=== PATIENT | male | born 1925 | race Caucasian/White ===

== ENCOUNTER 2016-10-12 04:21 | Inpatient (IN) | payer OTHER ==
[2016-10-07 16:35] LABS: HEMATOCRIT 43.2 % (40.0-51.0); HEMOGLOBIN 14.9 g/dL (13.6-17.8)
[2016-10-07 16:40] LABS: CHLORIDE, SERUM 103 MMOL/L (96-112); CO2 (CARBON DIOXIDE) 28 MMOL/L (24-34); GFR AFRICAN AMERICAN 41 ML/MIN (>=60); GFR NON AFRICAN AMERICAN 36 ML/MIN (>=60); GLUCOSE, SERUM 208 MG/DL (60-99); POTASSIUM, SERUM 4.3 MMOL/L (3.5-5.3); SODIUM, SERUM 139 MMOL/L (135-148)
[2016-10-07 16:42] LABS: BUN (BLOOD UREA NITROGEN) 23 MG/DL (6-23); CREATININE 1.67 MG/DL (0.70-1.30)
[2016-10-07 17:05] LABS: ASCORBIC ACID (UR NOT ORDER) NEG (NEG); BILIRUBIN, URINE NEGATIVE (NEG); KETONE, URINE NEGATIVE (NEG); LEUKOCYTE ESTERASE(NOT OR LARGE (NEG); WBC (NOT ORDERED) (RFLEX) 21 (0-5)
--- NOTE | ~2016-10-12 | OP ---
Record Of Operation [facility] [address] [place]. [address] NAME: ROCHELLE COLILNS : [birth year] STATUS : ADM [facility]#: [id number] AGE: 89 ADM/REG DATE : 10/12/16 MR#: [id number] REPORT SERV DATE: 10/12/16 DICTATED BY: KESHIA ZAMORANO DATE: 10/12/16 REPORT STATUS : Draft TRANSCRIBED BY: MODL DATE: 10/12/16 DATE OF PROCEDURE: 10/12/2016 SURGEON: Keshia Zamorano M.D. TITLE OF OPERATION: Robot-assisted laparoscopic simple prostatectomy. PREOPERATIVE DIAGNOSES: 1. Benign prostatic hypertrophy with obstruction. 2. Urinary retention. POSTOPERATIVE DIAGNOSES: 1. Benign prostatic hypertrophy with obstruction. 2. Urinary retention. INDICATIONS: Mr. Collins is an 89-year-old male with urinary retention. His prostate volume was approximately 150 g. He is here for robotic simple prostatectomy. ANESTHESIA: General. COMPLICATIONS: None. IMPLANTS: 1. 24-Frisian three-way Watt catheter. 2. #10 round ROLF drain. SPECIMEN: Prostatic adenoma. NARRATIVE: The patient was brought to the operating room, identified by his wristband. General anesthesia was induced, and Ancef and Levaquin were given for preoperative antibiotics based on preoperative cultures. He was placed in dorsal lithotomy position, prepped and draped in sterile fashion. His abdomen was insufflated to pressure of 15 mmHg using a Veress needle. A 12 mm port was placed in a supraumbilical position under direct vision. The abdomen was inspected, it was normal. Standard SI port placement was performed with two 8 mm ports on left side of the body and one 8 mm port on the right side of the body. A 12 mm port was placed in the right lower quadrant, and a 5 mm port was placed in the right upper quadrant for assistant shift supervisor ports. The patient was placed in Trendelenburg. The robot was docked. The bladder was dropped off the anterior abdominal wall with electrocautery. The prostate was defatted with bipolar cautery and scissors. A horizontal cystotomy was made. The intravesical adenoma was marked with a 2-0 Vicryl suture. The mucosa above the trigone on the adenoma was scored. This dissection was deepened through the detrusor fibers onto the adenoma. The adenoma was traced posteriorly to the junction of the transitional and peripheral zones. This dissection was then carried from the base to the apex of the prostate. The adenoma was then dissected free from the prostatic capsule laterally and anteriorly. The urethra was identified, it was transected. The adenoma was removed and placed into EndoCatch bag. The bladder mucosa was advanced into the prostatic Record Of Operation [address] [place]. [address] NAME: ROCHELLE COLLINS : [birth year] STATUS : ADM IN PAT#: [id number] AGE: 89 ADM/REG DATE : 10/12/16 MR#: [id number] REPORT SERV DATE: 10/12/16 DICTATED BY: KESHIA ZAMORANO DATE: 10/12/16 REPORT STATUS : Draft TRANSCRIBED BY: GAVI DATE: 10/12/16 fossa using a 3-0 V-Loc suture. Care was taken to oversew the pedicles bleeders at the 5 and 7 o'clock positions. A separate 3-0 V-Loc suture was used to oversew the dorsal venous penetrators in the U shaped configuration. A 24-Frisian three-way Watt catheter was placed. The cystotomy was closed in two layers. The first layer was a mucosal layer using a 3-0 V- Loc suture, the second layer was a seromuscular layer using running 2-0 V-Loc suture. The bladder was irrigated, it was water tight. The balloon was inflated with 40 mL of sterile water. CBI was initiated. The robot was undocked. The assistant shift supervisor port was closed with a 0 Vicryl suture using Orlin-Ariella device. A #10 round ROLF drain was placed to the left most lateral robotic port and sutured in place with a 2-0 Prolene suture. The ports were sequentially removed. There was no bleeding. The supraumbilical incision was enlarged at the skin and fascia level. The prostatic adenoma in the EndoCatch bag were removed and sent to pathology. The fascia was closed with a 0 Monocryl suture in a [id number] fashion. The wounds were irrigated clear. The subcutaneous tissues were closed with a 3-0 Vicryl suture. Skin was closed with 4-0 Monocryl suture. Dermabond dressing was placed. The patient was awoken from anesthesia and transferred to recovery room in stable condition. There were no complications. PJ/GAVI Keshia Zamorano MD / [id number] CC: Keshia Zamorano MD
--- NOTE | ~2016-10-12 | PREOPHP ---
PreOp History and Physical [address] [place]. [address] NAME: ROCHELLE COLLINS : [birth year] STATUS : DIS IN PAT#: [id number] AGE: 89 ADM/REG DATE : 10/12/16 MR#: [id number] REPORT SERV DATE: 11/06/16 DICTATED BY: KESHIA ZAMORANO DATE: 11/06/16 REPORT STATUS : Draft TRANSCRIBED BY: MODL DATE: 11/06/16 CHIEF COMPLAINT: BPH with obstruction with urinary retention. HISTORY OF PRESENT ILLNESS: Mr. Collins is an 89-year-old male with history of a very large prostate and urinary retention. He is otherwise healthy. We discussed his options including Watt catheter placement, SP tube, TURP, and simple prostatectomy. Given the size of his prostate, we elected for Robotic-assisted laparoscopic simple prostatectomy and he is here for that procedure. PAST MEDICAL HISTORY: 1. BPH with obstruction. 2. Urinary retention. 3. History of bladder cancer. 4. Diabetes. 5. Hypertension. 6. Detached retina. 7. History of pleural effusion. SURGICAL HISTORY: 1. C-spine fusion. 2. Previous bladder surgery for cancer. 3. Cataract excision. SOCIAL HISTORY: He does not smoke, drink, or use illegal drugs. FAMILY HISTORY: Noncontributory. MEDICATIONS: Reviewed and on the chart. ALLERGIES: NO KNOWN DRUG ALLERGIES. SOCIAL HISTORY: Noncontributory. REVIEW OF SYSTEMS: A 12-point review of systems was performed. Pertinent positives listed in the HPI. PHYSICAL EXAMINATION: VITAL SIGNS: Afebrile. Vital signs stable. GENERAL: No acute distress. Appears stated age. HEENT: Head is normocephalic and atraumatic. LUNGS: Breathing is nonlabored. He is not in respiratory distress. HEART: Pulse is regular in rate and rhythm. ABDOMEN: Soft, nontender, nondistended. : He has a Watt catheter in place. Urine is clear. ASSESSMENT AND PLAN: BPH with obstruction and urinary retention. We will proceed with Robotic-assisted laparoscopic simple prostatectomy. Risks and benefits were discussed in PreOp History and Physical [address] [address] NAME: ROCHELLE COLLINS : [birth year] STATUS : DIS IN PAT#: [id number] AGE: 89 ADM/REG DATE : 10/12/16 MR#: [id number] REPORT SERV DATE: 11/06/16 DICTATED BY: KESHIA ZAMORANO DATE: 11/06/16 REPORT STATUS : Draft TRANSCRIBED BY: GAVI DATE: 11/06/16 detail. Consents were signed. PJ/GAVI Keshia Zamorano MD / [id number] CC: MD Rochelle Salgado M.D.
--- NOTE | ~2016-10-12 | DS ---
Discharge Summary [facility] [address] [place]. [address] NAME: ROCHELLE COLLINS : [birth year] STATUS : DIS IN PAT#: [id number] AGE: 89 ADM/REG DATE : 10/12/16 MR#: [id number] REPORT SERV DATE: 11/06/16 DICTATED BY: KESHIA ZAMORANO DATE: 11/06/16 REPORT STATUS : Draft TRANSCRIBED BY: MODL DATE: 11/06/16 ADMISSION DATE: 10/12/2016 DISCHARGE DATE: 10/18/2016 DISCHARGE DIAGNOSES: 1. Benign prostatic hypertrophy with obstruction. 2. Urinary retention. 3. Ileus. 4. Atrial fibrillation with RVR. DISCHARGE PROCEDURES: Robot-assisted laparoscopic simple prostatectomy. HOSPITAL COURSE: Mr. Collins is an 89-year-old male, with BPH, with obstruction, and urinary retention. On the day of admission, he underwent the above-mentioned operation. There were no complications. For full operative details, see my operative note. Mr. Collins's hospitalization was notable for an ileus requiring NG tube placement. Additionally, he developed atrial fibrillation with RVR and was transferred to the ICU. An photo specialist consult was obtained. The recommendations were followed. He is maintained on amiodarone drip. His atrial fibrillation resolved as did his ileus. The amiodarone drip was removed as was his NG tube. His diet was then advanced to a regular diet which he was tolerating it by the time of discharge. His Watt catheter was removed prior to discharge and he is able to void spontaneously. On day of discharge, the patient was deemed medically fit for home and he was discharge home. DISCHARGE INSTRUCTIONS: Please see my preprinted discharge instructions. DISCHARGE MEDICATIONS: Please see discharge medicine reconciliation work sheet. FOLLOWUP: Please follow up with me in two weeks. PJ/GAVI Keshia Zamorano MD / [id number] CC: MD Rochelle Salgado M.D.
--- NOTE | ~2016-10-12 | CN ---
Consultation Report [facility] [address] [place]. [address] NAME: ROCHELLE COLLINS : [birth year] STATUS : ADM IN [facility]#: [id number] AGE: 89 ADM/REG DATE : 10/12/16 MR#: [id number] REPORT SERV DATE: 10/14/16 DICTATED BY: MARKELL LUIS DATE: 10/14/16 REPORT STATUS : Draft TRANSCRIBED BY: MODL DATE: 10/14/16 PULMONARY AND CRITICAL CARE CONSULT NOTE DATE OF CONSULTATION: 10/14/2016 REASON FOR CONSULTATION: Atrial fibrillation with RVR and acute hypoxemic respiratory failure. HISTORY OF PRESENT ILLNESS: Mr. Collins is a pleasant 89-year-old gentleman who was admitted to Dr. Loi Zamorano' service for a simple robotic prostatectomy which was completed uneventfully on 10/12/2016. During that procedure, he had an estimated blood loss around 200 mL and prostate pathology was negative for carcinoma. Over the last couple of days, he has been recovering in [facility] and this evening developed some tachycardia, atrial fibrillation with RVR was detected, and he was noted to be somewhat hypoxemic requiring 6 L of nasal oxygen to maintain satisfactory oxygen sat and he was moved to the intensive care unit for closer monitoring. We have been consulted to assist. He denies other symptoms and is actually awake and conversive on my examination and making jokes. PAST MEDICAL HISTORY: Previous bladder cancer and benign prostatic hypertrophy. He is a type 2 diabetic, has hypertension, previously detached retina, and a history of a recurrent right pleural effusion, status post right thoracoscopy with complete decortication on 10/09/[address] Landaverde. OTHER SURGICAL HISTORY: Includes C-spine fusion, previous bladder surgery for cancer, and cataract excision. SOCIAL HISTORY: The patient worked for many years at [employer] on [employer] [facility]. He is a long- time nonsmoker with no prior asbestos history. He denies alcohol or illicit drug use and is and is fairly active at his baseline. FAMILY HISTORY: Coronary artery disease and hypertension in multiple first-degree relatives. HOME MEDICATIONS: Include Glucotrol 5 mg twice daily, hydrochlorothiazide 25 every morning, metformin once a day at dinner time, naproxen as needed for pain and p.r.n. cough syrup. He has no drug allergies. ADVANCED DIRECTIVES/LIVING NEAL: None available on the chart. PHYSICAL EXAMINATION: GENERAL: The patient is a pleasant elderly gentleman in no acute distress. He is awake and conversive, cooperative and interactive with my examination. VITAL SIGNS: Blood pressure is 165 systolic with a heart rate of 101, irregularly irregular on the monitor. He is afebrile breathing around 18 times per minute and denies pain. HEENT: Head is atraumatic and normocephalic. Pupils are equal, round, and reactive to Consultation Report [address] [place]. [address] NAME: ROCHELLE COLLINS : [birth year] STATUS : ADM IN PAT#: [id number] AGE: 89 ADM/REG DATE : 10/12/16 MR#: [id number] REPORT SERV DATE: 10/14/16 DICTATED BY: MARKELL LUIS DATE: 10/14/16 REPORT STATUS : Draft TRANSCRIBED BY: GAVI DATE: 10/14/16 light. Extraocular movements are intact. Ears, nose, and mouth are unremarkable. He has a slightly dry oral mucosa and fair oral dentition. NECK: Supple without JVD. LUNGS: With few basilar crackles but no expiratory wheezes. HEART: S1, S2. Irregularly irregular with a rate of around 100 on my exam. ABDOMEN: Protuberant, distended, tympanitic with very quiet bowel sounds. A Watt catheter is indwelling and draining dark urine. EXTREMITIES: With trace pretibial edema which pits negative lymphatic exam. No palpable adenopathy. NEUROLOGIC EXAM: Grossly intact. He has symmetric sensory, motor, and cranial nerve function throughout and is awake and cognizant of his surroundings. PSYCH EXAM: Appropriate to situation. DIAGNOSTIC STUDIES: Personal review of [facility] and [facility] records was completed. Personal review of diagnostic workup completed since hospitalization was completed. Today CBC showed a white blood cell count of 1.4 with a normochromic normocytic anemia with a hemoglobin of 12.9 and hematocrit of 37.2 with an adequate platelet count of 183. His electrolyte profile was fairly unremarkable. He has a creatinine of 1.3 (likely chronic kidney disease) with a calculated GFR of around 48 mL/minute. He is mildly hyperglycemic in the setting of critical illness at 192 and is otherwise with normal electrolytes. Urine culture shows Enterobacter cloacae with colony count of greater than 100,000 which is resistant to Bactrim but otherwise sensitive. An EKG showed atrial fib with RVR according to nursing reports, although the tracing is not on the chart or available in the system at this point. His last chest x-ray in our system was from 2013 during his VATS decortication. A KUB performed earlier today shows gaseous distention of the bowel with an NG tube in place. Visualized lung lewis are fairly unremarkable. No infiltrate or pleural effusion is noted. IMPRESSION: 1. Atrial fibrillation with RVR, which is clinically improved, status post fluid administration and amiodarone protocol, which were written by Dr. Zamorano on the floor prior to his transfer. 2. Normochromic normocytic anemia which appear stable. 3. Suspected postop ileus versus small-bowel obstruction, status post NG insertion with approximately 400 output since tube was placed earlier this evening and symptomatic relief of the patient's abdominal pain. 4. Chronic kidney disease with adequate urine output. 5. Diabetes mellitus type 2 with hyperglycemia in the setting of acute illness. 6. Mild leukocytosis. 7. Enterobacter bacteriuria as above. 8. History of hypertension. 9. Additional past medical history as above. Consultation Report [address] [address] NAME: ROCHELLE COLLINS : [birth year] STATUS : ADM IN [facility]#: [id number] AGE: 89 ADM/REG DATE : 10/12/16 MR#: [id number] REPORT SERV DATE: 10/14/16 DICTATED BY: MARKELL LUIS DATE: 10/14/16 REPORT STATUS : Draft TRANSCRIBED BY: MODL DATE: 10/14/16 PLAN: Mr. Collins is clinically improved status post the interventions noted above per Dr. Zamorano. He is now in MICU bed 6 and resting comfortably where we will continue to monitor him throughout the evening. We will continue to titrate amiodarone per protocol and hold off on additional IV hydration now that his heart rate is improved. We will monitor his blood glucose and titrate to a blood glucose level of 140 to 180 while he is critically ill. We will continue to monitor his electrolytes closely including K-Mag and phos and replete when appropriate. We will utilize p.r.n. labetalol as needed for control of hypertension with systolic greater than 180 and restart his oral medications when feasible. He will require serial abdominal exams due to postop ileus, and we will closely monitor in's and out's. Frequent spirometry and early immobilization will certainly help with this process as well. His family was then updated this evening and are agreeable to the plan for care as laid out above. We appreciate the consultation. We will follow along with you. Call with questions. TIMOTHY/GAVI Markell Luis MD / [id number] CC: Loi Zamorano MD
[~2016-10-12 04:21] MED LIST: ALEVE220 MG PO; AUGMENTIN; COUGH SYRUP; FLOMAX4 PO; GLIPIZIDE; GLUCOTROL5 PO; GLUCPH PO; HYDROCHLOROT25 MG PO; MULTIPLE VIT PO; PCET PO
[2016-10-12 09:51] LABS: BASOPHILS 0.3 %; BASOPHILS ABSOLUTE 0.02 10/3/uL (0.0-0.16); EOSINOPHILS 1.3 %; HEMOGLOBIN 13.3 g/dL (13.6-17.8); IMMATURE GRANULOCYTES 0.4 %; IMMATURE GRANULOCYTES ABSOLUTE 0.03 10/3/uL (0.0-0.11); LYMPHOCYTES 10.9 %; LYMPHOCYTES ABSOLUTE 0.83 10/3/uL (0.67-4.30); MEAN CORPUSCULAR HEMOGLOB 30.3 pg (26.0-34.0); MEAN PLATELET VOLUME 11.1 fL (9.2-13.0); MONOCYTES 4.1 %; MONOCYTES ABSOLUTE 0.31 10/3/uL (0.21-1.20); RBC DISTRIBUTION WIDTH 13.4 % (12.0-16.0); WHITE BLOOD CELLS 7.6 10/3/uL (4.5-10.5)
[2016-10-12 09:53] LABS: HEMATOCRIT 38.5 % (40.0-51.0); MANUAL DIFF NO %; MEAN CORPUS HGB CONC 34.5 g/dL (32.0-36.0); MEAN CORPUSCULAR VOLUME 87.7 fL (80-100); PLATELET COUNT 189 10/3/uL (150-400); RED CELL COUNT 4.39 10/6/uL (4.7-6.1)
[2016-10-12 10:02] LABS: BUN (BLOOD UREA NITROGEN) 16 MG/DL (6-23); CALCIUM, SERUM 9.8 MG/DL (8.5-10.4); CHLORIDE, SERUM 104 MMOL/L (96-112); CO2 (CARBON DIOXIDE) 26 MMOL/L (24-34); CREATININE 1.55 MG/DL (0.70-1.30); GFR AFRICAN AMERICAN 45 ML/MIN (>=60); GFR NON AFRICAN AMERICAN 39 ML/MIN (>=60); GLUCOSE, SERUM 176 MG/DL (60-99); POTASSIUM, SERUM 3.7 MMOL/L (3.5-5.3); SODIUM, SERUM 141 MMOL/L (135-148)
[2016-10-13 04:29] LABS: BASOPHILS 0.2 %; BASOPHILS ABSOLUTE 0.02 10/3/uL (0.0-0.16); EOSINOPHILS 0.2 %; EOSINOPHILS ABSOLUTE 0.02 10/3/uL (0.0-0.53); HEMATOCRIT 36.6 % (40.0-51.0); HEMOGLOBIN 12.8 g/dL (13.6-17.8); IMMATURE GRANULOCYTES 0.3 %; IMMATURE GRANULOCYTES ABSOLUTE 0.04 10/3/uL (0.0-0.11); LYMPHOCYTES 13.4 %; LYMPHOCYTES ABSOLUTE 1.76 10/3/uL (0.67-4.30); MEAN CORPUSCULAR HEMOGLOB 30.9 pg (26.0-34.0); MEAN CORPUSCULAR VOLUME 88.4 fL (80-100); MONOCYTES 10.4 %; MONOCYTES ABSOLUTE 1.36 10/3/uL (0.21-1.20); NEUTROPHILS 75.5 %; NEUTROPHILS ABSOLUTE 9.93 10/3/uL (2.02-8.40); PLATELET COUNT 178 10/3/uL (150-400); RBC DISTRIBUTION WIDTH 13.1 % (12.0-16.0); RED CELL COUNT 4.14 10/6/uL (4.7-6.1)
[2016-10-13 04:30] LABS: MANUAL DIFF NO %; WHITE BLOOD CELLS 13.1 10/3/uL (4.5-10.5)
[2016-10-13 04:47] LABS: CALCIUM, SERUM 9.6 MG/DL (8.5-10.4); CHLORIDE, SERUM 103 MMOL/L (96-112); CO2 (CARBON DIOXIDE) 29 MMOL/L (24-34); CREATININE 1.36 MG/DL (0.70-1.30); GFR AFRICAN AMERICAN 53 ML/MIN (>=60); GFR NON AFRICAN AMERICAN 46 ML/MIN (>=60); GLUCOSE, SERUM 155 MG/DL (60-99); POTASSIUM, SERUM 4.3 MMOL/L (3.5-5.3); SODIUM, SERUM 138 MMOL/L (135-148)
[2016-10-13 04:51] LABS: BUN (BLOOD UREA NITROGEN) 12 MG/DL (6-23)
[2016-10-14 06:35] LABS: BASOPHILS 0.1 %; BASOPHILS ABSOLUTE 0.01 10/3/uL (0.0-0.16); EOSINOPHILS 0.4 %; EOSINOPHILS ABSOLUTE 0.04 10/3/uL (0.0-0.53); HEMATOCRIT 37.2 % (40.0-51.0); HEMOGLOBIN 12.9 g/dL (13.6-17.8); IMMATURE GRANULOCYTES 0.4 %; IMMATURE GRANULOCYTES ABSOLUTE 0.05 10/3/uL (0.0-0.11); LYMPHOCYTES 6.8 %; LYMPHOCYTES ABSOLUTE 0.78 10/3/uL (0.67-4.30); MEAN CORPUS HGB CONC 34.7 g/dL (32.0-36.0); MEAN CORPUSCULAR HEMOGLOB 30.8 pg (26.0-34.0); MEAN CORPUSCULAR VOLUME 88.8 fL (80-100); MEAN PLATELET VOLUME 11.6 fL (9.2-13.0); MONOCYTES 8.6 %; MONOCYTES ABSOLUTE 0.98 10/3/uL (0.21-1.20); NEUTROPHILS 83.7 %; NEUTROPHILS ABSOLUTE 9.54 10/3/uL (2.02-8.40); PLATELET COUNT 183 10/3/uL (150-400); RBC DISTRIBUTION WIDTH 13.3 % (12.0-16.0); RED CELL COUNT 4.19 10/6/uL (4.7-6.1); WHITE BLOOD CELLS 11.4 10/3/uL (4.5-10.5)
[2016-10-14 06:37] LABS: MANUAL DIFF NO %
[2016-10-14 06:42] LABS: BUN (BLOOD UREA NITROGEN) 10 MG/DL (6-23); CALCIUM, SERUM 10.2 MG/DL (8.5-10.4); CHLORIDE, SERUM 102 MMOL/L (96-112); GFR AFRICAN AMERICAN 56 ML/MIN (>=60); GFR NON AFRICAN AMERICAN 48 ML/MIN (>=60); POTASSIUM, SERUM 4.2 MMOL/L (3.5-5.3); SODIUM, SERUM 137 MMOL/L (135-148)
[2016-10-14 06:46] LABS: CO2 (CARBON DIOXIDE) 24 MMOL/L (24-34); GLUCOSE, SERUM 192 MG/DL (60-99)
[2016-10-14 21:15] LABS: BUN (BLOOD UREA NITROGEN) 12 MG/DL (6-23); CALCIUM, SERUM 9.5 MG/DL (8.5-10.4); CHLORIDE, SERUM 101 MMOL/L (96-112); CREATININE 1.33 MG/DL (0.70-1.30); GFR AFRICAN AMERICAN 55 ML/MIN (>=60); GFR NON AFRICAN AMERICAN 47 ML/MIN (>=60); GLUCOSE, SERUM 174 MG/DL (60-99); PHOSPHORUS, SERUM 2.3 MG/DL (2.5-4.5); POTASSIUM, SERUM 4.5 MMOL/L (3.5-5.3); SODIUM, SERUM 137 MMOL/L (135-148)
[2016-10-14 21:18] LABS: CO2 (CARBON DIOXIDE) 30 MMOL/L (24-34)
[2016-10-15 05:40] LABS: ALBUMIN 2.6 G/DL (3.5-5.0); BUN (BLOOD UREA NITROGEN) 12 MG/DL (6-23); CALCIUM, SERUM 9.4 MG/DL (8.5-10.4); CHLORIDE, SERUM 101 MMOL/L (96-112); CO2 (CARBON DIOXIDE) 26 MMOL/L (24-34); CREATININE 1.27 MG/DL (0.70-1.30); GFR AFRICAN AMERICAN 58 ML/MIN (>=60); GFR NON AFRICAN AMERICAN 50 ML/MIN (>=60); GLUCOSE, SERUM 161 MG/DL (60-99); POTASSIUM, SERUM 3.7 MMOL/L (3.5-5.3); SODIUM, SERUM 136 MMOL/L (135-148); ULTRASENSITIVE TSH 0.873 MCIU/ML (0.358-3.740)
[2016-10-15 05:48] LABS: BASOPHILS 0.1 %; BASOPHILS ABSOLUTE 0.01 10/3/uL (0.0-0.16); EOSINOPHILS 0.8 %; EOSINOPHILS ABSOLUTE 0.06 10/3/uL (0.0-0.53); HEMATOCRIT 36.9 % (40.0-51.0); HEMOGLOBIN 12.6 g/dL (13.6-17.8); IMMATURE GRANULOCYTES 0.4 %; IMMATURE GRANULOCYTES ABSOLUTE 0.03 10/3/uL (0.0-0.11); LYMPHOCYTES 11.3 %; LYMPHOCYTES ABSOLUTE 0.84 10/3/uL (0.67-4.30); MEAN CORPUS HGB CONC 34.1 g/dL (32.0-36.0); MEAN CORPUSCULAR HEMOGLOB 30.5 pg (26.0-34.0); MEAN CORPUSCULAR VOLUME 89.3 fL (80-100); MEAN PLATELET VOLUME 11.3 fL (9.2-13.0); MONOCYTES 13.1 %; MONOCYTES ABSOLUTE 0.98 10/3/uL (0.21-1.20); NEUTROPHILS 74.3 %; NEUTROPHILS ABSOLUTE 5.54 10/3/uL (2.02-8.40); PLATELET COUNT 150 10/3/uL (150-400); RBC DISTRIBUTION WIDTH 13.1 % (12.0-16.0); RED CELL COUNT 4.13 10/6/uL (4.7-6.1); WHITE BLOOD CELLS 7.5 10/3/uL (4.5-10.5)
[2016-10-15 05:52] LABS: MANUAL DIFF NO %
[2016-10-16 05:12] LABS: BASOPHILS 0.2 %; BASOPHILS ABSOLUTE 0.02 10/3/uL (0.0-0.16); EOSINOPHILS 0.8 %; EOSINOPHILS ABSOLUTE 0.07 10/3/uL (0.0-0.53); HEMATOCRIT 34.9 % (40.0-51.0); HEMOGLOBIN 12.1 g/dL (13.6-17.8); IMMATURE GRANULOCYTES 0.6 %; IMMATURE GRANULOCYTES ABSOLUTE 0.05 10/3/uL (0.0-0.11); LYMPHOCYTES 12.4 %; LYMPHOCYTES ABSOLUTE 1.06 10/3/uL (0.67-4.30); MEAN CORPUS HGB CONC 34.7 g/dL (32.0-36.0); MEAN CORPUSCULAR HEMOGLOB 30.6 pg (26.0-34.0); MEAN CORPUSCULAR VOLUME 88.1 fL (80-100); MEAN PLATELET VOLUME 11.6 fL (9.2-13.0); MONOCYTES 12.6 %; MONOCYTES ABSOLUTE 1.08 10/3/uL (0.21-1.20); NEUTROPHILS 73.4 %; NEUTROPHILS ABSOLUTE 6.28 10/3/uL (2.02-8.40); PLATELET COUNT 156 10/3/uL (150-400); RBC DISTRIBUTION WIDTH 13.1 % (12.0-16.0); RED CELL COUNT 3.96 10/6/uL (4.7-6.1); WHITE BLOOD CELLS 8.6 10/3/uL (4.5-10.5)
[2016-10-16 05:13] LABS: MANUAL DIFF NO %
[2016-10-16 05:27] LABS: ALBUMIN 2.3 G/DL (3.5-5.0); CALCIUM, SERUM 9.5 MG/DL (8.5-10.4); CHLORIDE, SERUM 101 MMOL/L (96-112); CO2 (CARBON DIOXIDE) 27 MMOL/L (24-34); GFR AFRICAN AMERICAN 56 ML/MIN (>=60); GFR NON AFRICAN AMERICAN 48 ML/MIN (>=60); GLUCOSE, SERUM 135 MG/DL (60-99); SGOT(AST) 10 U/L (5-40); SGPT(ALT) 9 U/L (5-65); SODIUM, SERUM 138 MMOL/L (135-148); TOTAL BILIRUBIN 0.5 MG/DL (0-1.2)
[2016-10-16 05:28] LABS: A/G RATIO 0.7 (0.7-1.9); ALKALINE PHOSPHATASE 56 U/L (45-117); BUN (BLOOD UREA NITROGEN) 18 MG/DL (6-23); GLOBULIN 3.4 G/DL (2.5-4.1); TOTAL PROTEIN 5.7 G/DL (6.0-8.5)
[2016-10-17 04:49] LABS: BASOPHILS 0.2 %; BASOPHILS ABSOLUTE 0.02 10/3/uL (0.0-0.16); EOSINOPHILS 2.1 %; EOSINOPHILS ABSOLUTE 0.18 10/3/uL (0.0-0.53); HEMATOCRIT 36.2 % (40.0-51.0); HEMOGLOBIN 12.6 g/dL (13.6-17.8); IMMATURE GRANULOCYTES 0.9 %; IMMATURE GRANULOCYTES ABSOLUTE 0.08 10/3/uL (0.0-0.11); LYMPHOCYTES 13.8 %; LYMPHOCYTES ABSOLUTE 1.19 10/3/uL (0.67-4.30); MANUAL DIFF NO %; MEAN CORPUS HGB CONC 34.8 g/dL (32.0-36.0); MEAN CORPUSCULAR HEMOGLOB 30.5 pg (26.0-34.0); MEAN CORPUSCULAR VOLUME 87.7 fL (80-100); MEAN PLATELET VOLUME 11.8 fL (9.2-13.0); MONOCYTES ABSOLUTE 1.12 10/3/uL (0.21-1.20); NEUTROPHILS ABSOLUTE 6.02 10/3/uL (2.02-8.40); PLATELET COUNT 150 10/3/uL (150-400); RBC DISTRIBUTION WIDTH 13.2 % (12.0-16.0); RED CELL COUNT 4.13 10/6/uL (4.7-6.1); WHITE BLOOD CELLS 8.6 10/3/uL (4.5-10.5)
[2016-10-17 05:08] LABS: ALBUMIN 2.6 G/DL (3.5-5.0); BUN (BLOOD UREA NITROGEN) 21 MG/DL (6-23); CALCIUM, SERUM 9.3 MG/DL (8.5-10.4); CHLORIDE, SERUM 99 MMOL/L (96-112); CO2 (CARBON DIOXIDE) 30 MMOL/L (24-34); CREATININE 1.27 MG/DL (0.70-1.30); GFR AFRICAN AMERICAN 58 ML/MIN (>=60); GFR NON AFRICAN AMERICAN 50 ML/MIN (>=60); GLUCOSE, SERUM 123 MG/DL (60-99); PHOSPHORUS, SERUM 2.1 MG/DL (2.5-4.5); POTASSIUM, SERUM 3.5 MMOL/L (3.5-5.3); SODIUM, SERUM 136 MMOL/L (135-148)
[2016-10-18] MEDS ORDERED: PCET PO (11:19)
[2016-10-18] MEDS ORDERED: DSS PO (11:19)
== END 2016-10-18 14:04 | disposition home or self-care (01) | DRG 707 ==
LOC: SDC/OF 04:21 → PACU 09:08 → 4SO 11:27 → MIC 10-14 20:34 → 4SO 10-17 14:39
PROVIDERS: Internal Medicine Critical Care Medicine; Internal Medicine Pulmonary Disease; Urology
PROC: 8E0W0CZ Robotic Assisted Procedure of Trunk Region, Open Approach (ICD-10-PCS; 2016-10-12)
PROC: 3E0T3CZ (ICD-10-PCS; 2016-10-12)
PROC: 0VT00ZZ Resection of Prostate, Open Approach (ICD-10-PCS; principal; 2016-10-12 06:00)
DX: N40.1 Benign prostatic hyperplasia with lower urinary tract symptoms (principal); J96.01 Acute respiratory failure with hypoxia; N13.8 Other obstructive and reflux uropathy; I97.89 Other postprocedural complications and disorders of the circulatory system, not elsewhere classified; K91.89 Other postprocedural complications and disorders of digestive system; N39.0 Urinary tract infection, site not specified; R33.9 Retention of urine, unspecified; I12.9 Hypertensive chronic kidney disease with stage 1 through stage 4 chronic kidney disease, or unspecified chronic kidney disease; N18.9 Chronic kidney disease, unspecified; D50.0 Iron deficiency anemia secondary to blood loss (chronic); I48.91 Unspecified atrial fibrillation; E11.65 Type 2 diabetes mellitus with hyperglycemia; M19.90 Unspecified osteoarthritis, unspecified site; E11.22 Type 2 diabetes mellitus with diabetic chronic kidney disease; Y83.8 Other surgical procedures as the cause of abnormal reaction of the patient, or of later complication, without mention of misadventure at the time of the procedure; B96.89 Other specified bacterial agents as the cause of diseases classified elsewhere; Z79.84 Long term (current) use of oral hypoglycemic drugs; Z79.899 Other long term (current) drug therapy; Z85.51 Personal history of malignant neoplasm of bladder; Z98.1 Arthrodesis status
CPT/HCPCS: 36415; 71010; 74000; 80048; 80053; 80069; 81001; 82570; 82962; 83735; 84100; 84443; 85014; 85018; 85025; 86850; 86900; 86901; 87077; 87086; 87186; 87641; 88307; 93005; A9270-GY; J0282; J0690; J1956; J2250; J2370; J2405; J2710; J2795; J3010